=== PATIENT | female | born 1975 | race Caucasian/White ===

== ENCOUNTER 2017-01-14 12:04 | Emergency (ER) | payer BC ==
[2017-01-14] MEDS ORDERED: oxyCODONE/Acetamin 5/325 MG* TAB PO ONE (13:01)
--- NOTE | 2017-01-14 13:31 | RAD ---
INDICATION: Chest pain COMPARISON: Similar chest x-ray November 18, 2013 TECHNIQUE: Single AP portable view of the chest was obtained. FINDINGS: Image quality is compromised due to the relative inferiority of a portable chest x-ray. The heart and mediastinum exhibit normal size and contour. The lungs are grossly clear. There is no evidence of a large pleural effusion. Visualized bones are normal for the patient's age. IMPRESSION: No radiographic evidence for acute cardiopulmonary abnormality on this portable chest x-ray.
[2017-01-14 13:35] LABS: Hematocrit 41 % (35-47); Hemoglobin 13.6 g/dl (12.0-16.0); Mean Corpuscular HGB Conc 33 g/dl (31-36); Mean Corpuscular Hemoglobin 33 pg (27-31); Mean Corpuscular Volume 98 fL (80-97); Mean Platelet Volume 7 um3 (7.4-10.4); Red Blood Count 4.16 10^6/ul (4.0-5.4); Red Cell Distribution Width 13 % (10.5-15); White Blood Count 6.3 10^3/ul (3.5-10.8)
[2017-01-14 13:54] LABS: ALT 12 U/L (7-52); AST 12 U/L (13-39); Albumin 4.1 g/dL (3.2-5.2); Alkaline Phosphatase 44 U/L (34-104); Anion Gap 8 mmol/L (2-11); BUN/Creatinine Ratio 18.2 (8-20); Blood Urea Nitrogen 12 mg/dL (6-24); CO2 Carbon Dioxide 24 mmol/L (22-32); Calcium 8.7 mg/dL (8.6-10.3); Chloride 104 mmol/L (101-111); EGFR African American 125.7 (>60); EGFR Non-African American 97.7 (>60); Globulin 2.4 g/dL (2-4); Glucose 85 mg/dL (70-100); Potassium 3.9 mmol/L (3.5-5.0); Sodium 136 mmol/L (133-145); Total Protein 6.5 g/dL (6.4-8.9)
[2017-01-14 14:23] LABS: TSH (Thyroid Stimulating Horm) 1.21 mcIU/mL (0.34-5.60)
[2017-01-14 15:23] VITALS: BP 122/72
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
== END 2017-01-14 15:21 | disposition home or self-care (01) ==
LOC: ED 12:04
DX: R06.02 Shortness of breath (principal); R06.00 Dyspnea, unspecified; R00.2 Palpitations; F17.210 Nicotine dependence, cigarettes, uncomplicated; R53.83 Other fatigue
CPT/HCPCS: 36415; 71010; 80053; 83605; 83735; 84443; 84484; 84702; 85025; 85379; 93005; 99282; A9270-GY

== ENCOUNTER 2018-04-28 15:35 | Emergency (ER) | payer BC ==
--- NOTE | 2018-04-28 17:02 | RAD ---
Indication: Left johnson injury. 2 views of left tibia and fibula demonstrates no fracture. No prevertebral soft tissue swelling is noted. IMPRESSION: No fracture of the left lower leg is noted.
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
[2018-04-28 17:41] VITALS: BP 151/84
== END 2018-04-28 17:43 | disposition home or self-care (01) ==
LOC: ED 15:35
DX: S89.92XA Unspecified injury of left lower leg, initial encounter (principal); W22.8XXA Striking against or struck by other objects, initial encounter; Y92.9 Unspecified place or not applicable; F17.210 Nicotine dependence, cigarettes, uncomplicated
CPT/HCPCS: 99281